=== PATIENT | male | born 1950 | race Caucasian/White ===

== ENCOUNTER → 2019-05-12 | Outpatient (CLI) | payer OTHER ==
[~2019-05-12] MED LIST: AMLODIPINE PO; CHILDREN'S ZYRT10 M1 PO; CRESTOR5 MG PO; FLOMAX0.4 MG PO; FOLIC ACID PO; GLUCOSE4 GM PO; KEFLEX500 M2 PO; LISINOPRIL PO; NITROSTAT0.4 M1 SUBLING; TERAZOSIN HCL10 MG PO; TYLENOL PM EX-1 EACH PO; VITAMIN B-121000 MC2 SUBLING; VITAMIN D31000 UNI3 PO
== END ==
LOC: M.PC 09:51
DX: M47.816 Spondylosis without myelopathy or radiculopathy, lumbar region (principal); I25.10 Atherosclerotic heart disease of native coronary artery without angina pectoris; I25.2 Old myocardial infarction; Z95.5 Presence of coronary angioplasty implant and graft